=== PATIENT | male | born 1955 | race Caucasian/White ===

== ENCOUNTER 2022-08-13 07:56 | Day surgery (SDC) | payer MEDICARE, OTHER ==
[2022-08-12 09:48] VITALS: BMI 26.4
[2022-08-13] MEDS ORDERED: Lidocaine 2% MPF 10 ML AMP (For Epidural Use) ONE (08:16)
[2022-08-13] MEDS ORDERED: PROPOFOL 40 ML ONE (08:16)
== END 2022-08-13 11:20 | disposition home or self-care (01) ==
LOC: CSHSDC 07:56
PROVIDERS: ATTEND Internal Medicine Gastroenterology
PROC: 0DJD8ZZ Inspection of Lower Intestinal Tract, Via Natural or Artificial Opening Endoscopic (ICD-10-PCS; principal; 2022-08-13)
DX: Z12.11 Encounter for screening for malignant neoplasm of colon (principal); K57.30 Diverticulosis of large intestine without perforation or abscess without bleeding; K64.9 Unspecified hemorrhoids
CPT/HCPCS: J2704